=== PATIENT | male | born 1955 | race Caucasian/White ===

== ENCOUNTER 2023-07-18 09:11 | Outpatient (REF) | payer MEDICARE, OTHER, SELFPAY ==
[2023-07-18 15:19] LABS: TSH reflex Free T4 2.42 uIU/mL (0.32-4.0)
== END 2023-07-18 09:12 | disposition home or self-care (01) ==
LOC: HO.CHCLDS 09:11
PROVIDERS: Visit Provider Internal Medicine
DX: E03.8 Other specified hypothyroidism (principal)
CPT/HCPCS: 36415; 84443

== ENCOUNTER 2023-11-13 09:29 | Outpatient (REF) | payer MEDICARE, OTHER, SELFPAY ==
[2023-11-13 15:36] LABS: TSH reflex Free T4 3.22 uIU/mL (0.32-4.0)
== END 2023-11-13 09:30 | disposition home or self-care (01) ==
LOC: HO.CHCLDS 09:29
PROVIDERS: Visit Provider Internal Medicine
DX: E03.8 Other specified hypothyroidism (principal)
CPT/HCPCS: 36415; 84443

== ENCOUNTER 2024-05-31 14:39 | Outpatient (REF) | payer MEDICARE, OTHER, SELFPAY ==
[2024-05-31 17:59] LABS: MANUAL DIFF FLAG NO
[2024-05-31 18:03] LABS: Basophils Percent Auto 0.3 % (0-2); Eosinophils Absolute Auto 0.1 X10*3/uL (0.0-0.4); Eosinophils Percent Auto 1.1 % (0-4); Hematocrit 47.2 % (42.0-52.0); Imm Gran Abs Auto 0.02 X10*3/uL (0.00-0.03); Imm Gran Pct Auto 0.3 % (0.0-0.4); Lymphocytes Absolute Auto 1.5 X10*3/uL (1.2-4.9); Mean Corpuscular HGB Conc 33.9 g/dl (31.0-36.0); Mean Corpuscular Hemoglobin 31.1 pg (27.0-33.0); Mean Corpuscular Volume 91.8 fL (80.0-98.0); Mean Platelet Volume 9.7 fL (9.4-12.4); Monocytes Absolute Auto 0.6 X10*3/uL (0.1-1.2); Monocytes Percent Auto 9.6 % (2-11); Neutrophils Absolute Auto 3.9 x10*3/uL (2.0-8.3); Neutrophils Percent Auto 63.7 % (45-73); Platelet Count 256 X10*3/uL (160-400); Red Blood Count 5.14 X10*6/uL (4.60-5.80); Red Cell Distribution Width 12.1 % (11.0-16.0); White Blood Count 6.1 X10*3/uL (4.8-10.8)
[2024-05-31 18:23] LABS: Alanine Aminotransferase 19 U/L (0-40); Albumin Level 4.1 g/dL (3.5-5.0); Alkaline Phosphatase 88 U/L (39-117); Anion Gap 12 (12-20); Aspartate Amino Transferase 23 U/L (5-37); Bilirubin Total 0.8 mg/dL (0.0-1.0); Blood Urea Nitrogen 9 mg/dL (9-16); Calcium 9.8 mg/dL (8.4-10.2); Carbon Dioxide 28 mmol/L (22-29); Chloride 101 mmol/L (96-108); Cholesterol 145 mg/dL (<200); Estimated Glomerular Filt Rate > 60; Glucose Random 96 mg/dL (60-115); HDL Cholesterol 45 mg/dL (>40); LDL Cholesterol Calculated 85 mg/dL (<100); Potassium 4.4 mmol/L (3.3-5.1); Sodium 137 mmol/L (135-145); Total Protein 7.6 g/dL (6.5-8.0); Triglycerides 78 mg/dL (<150)
[2024-05-31 18:40] LABS: TSH reflex Free T4 2.03 uIU/mL (0.32-4.0)
[2024-05-31 18:49] LABS: Vitamin B12 819 pg/mL (200-900)
[2024-06-01 07:26] LABS: HBS Num1 3.25 mIU/mL (0-7.99); HBc Num1 0.18 S/CO (0.00-0.79); HBsAGNum1 0.29 S/CO (0.00-0.99); Hepatitis B Core Antibody Nonreactive (Nonreactive); Hepatitis B Surface Antigen Negative (Negative); ~Hepatitis B Surface Antibody NONREACTIVE (Nonreactive)
== END 2024-05-31 14:40 | disposition home or self-care (01) ==
LOC: HO.CHCLDS 14:39
PROVIDERS: Visit Provider Nurse Practitioner
DX: E03.8 Other specified hypothyroidism (principal); Z83.49 Family history of other endocrine, nutritional and metabolic diseases; Z13.9 Encounter for screening, unspecified
CPT/HCPCS: 36415; 80053; 80061; 82607; 84443; 85025; 86704; 86706; 87340

== ENCOUNTER 2025-07-07 11:47 | Outpatient (REF) | payer MEDICARE, OTHER, SELFPAY ==
--- OUTSIDE RECORDS SUMMARY | 2025-07-07 12:19 | XMS_ITS | Encounter Summary ---
Author Organization [employer] Address [address] [facility] 7t [place] [address] Care Team Providers Care Chute Puller Name Role Phone Henri Warner MD Primary Care Prov ider Encounter Details Date Type Department Care Team (Latest Contact Info) Description 06/06/2022 Abstract [facility] Dental, Provider, DDS Social History Tobacco Use Types Packs/Day Years Used Date Smoking Tobacco: Never Assessed Sex and Gender Information Value Date Recorded Sex Assigned at Male 09/30/2022 10:18 AM EDT Legal Sex Male 10:18 AM EDT Gender Identity Male 09/30/2022 10:18 AM EDT Sexual Orientation Straight 09/30/2022 10 :18 AM EDT documented as of this encounter Plan of Treatment Upcoming Encounters Date Type Department Care Team ( st Contact Info) Description 07/20/2025 2:30 PM EDT Office Visit [facility] ADULT [facility] [address] [place] [address] Berto Paulinoio [address] [place] [address] documented as of this encounter Visit Diagnoses Not on filedocumented in this encounter Care Teams Chute Puller Relationship Specialty Start Date End Date Henri Warner MD [address] [place] [address] PCP - General Internal Medicine 05/01/20 documented as of this encounter
[2025-07-07 14:52] LABS: PSA,Total (Free>4and<10) 0.94 ng/mL (0.00-4.00)
== END 2025-07-07 11:48 | disposition home or self-care (01) ==
LOC: HO.CHCLDS 11:47
PROVIDERS: Visit Provider Internal Medicine
DX: Z12.5 Encounter for screening for malignant neoplasm of prostate (principal)
CPT/HCPCS: 36415; 84153

== ENCOUNTER 2025-10-05 14:10 | Outpatient (REF) | payer MEDICARE, OTHER, SELFPAY ==
--- OUTSIDE RECORDS SUMMARY | 2025-09-29 22:59 | XMS_ITS | Continuity of Care Document ---
Author Organization [facility] Address [address] [place] [address]- Care Team Providers Care Curing Press Operator Name Role Phone Angely Sung MD, Henri Primary Care Phys ician Encounter [facility] [place] Date(s): 08/30/25 - 09/29/25 [facility] [address] [place] [phone] Encounter Type: Triage Allergies, Adverse Reactions, Alerts Substance Criticality Severity Reaction Reaction Severity Status penicillin swelling all over Active Immunizations Given and Recorded Vaccine Date Status Refusal Reason SARS-CoV-2 (COVID-19) Ad26 vaccine 03/11/21 Given Medications buPROPion 300 mg/24 hours (XL) oral tablet, extended release 1 tablet = 300 mg, By Mouth, Daily, 0 Refills, Maintenance, 08/18/25 1:02:00 PM EDT, Partial fill upon patient request if the prescription is for a schedule II opioid drug. Start Date: 08/18/25 Status: Ordered Medication Dispense Status: Completed Total Allowed Fills: 1 Fills Dispensed: 0 citalopram 20 mg oral tablet 2 tablet = 40 mg, By Mouth, Daily, 0 Refills, Maintenance, 09/14/10 8:24:49 AM EDT Start Date: 09/14/10 Status: Ordered Medication Dispense Status: Completed Total Allowed Fills: 1 Fills Dispensed: 0 omeprazole 20 mg oral delayed release tablet 1 tablet = 20 mg, By Mouth, Daily, # 90 tablet, 3 Refills, Maintenance, 06/16/25 1:50:00 PM EDT, CR Tablet, [facility] #[id number], Partial fill upon patient request if the prescription is for a schedule II opioid drug., 175, cm, 06/16/25 13:07:00 EDT, Height Start Date: 06/16/25 Status: Ordered Medication Dispense Status: Completed Quantity: 90.0 Unit: tablet Total Allowed Fills: 4 Fills Dispensed: 0 omeprazole 20 mg oral enteric coated capsule 1 capsule = 20 mg, By Mouth, Daily, # 90 capsule, 3 Refills, Maintenance, 05/10/24 11:39:00 AM EDT, EC Capsule, [facility] #[id number], 175, cm, 04/22/24 14:13:00 EDT, Height Start Date: 05/10/24 Stop Date: 05/05/25 Status: Ordered Medication Dispense Status: Completed Quantity: 90.0 Unit: capsule Total Allowed Fills: 4 Fills Dispensed: 0 [id number] with Electrolytes (Eqv-GoLYTELY) oral powder for reconstitution See Instructions, 1 glass every 15-30 minutes until finished, # 4,000 mL, 0 Refills, Maintenance, 08/02/25 4:05:00 PM EDT, [facility] #[id number], Partial fill upon patient request if the prescription is for a schedule II opioid drug., 1 glass every 15-30 minutes until finished, 175, cm, 06/16/2513:07:00 EDT, Height Start Date: 08/02/25 Status: Ordered Medication Dispense Status: Completed Quantity: 4000.0 Unit: mL Total Allowed Fills: 1 Fills Dispensed: 0 pravastatin 40 mg oral tablet 1 tablet = 40 mg, By Mouth, Daily at bedtime, 0 Refills, Maintenance, 09/14/10 8:26:01 AM EDT Start Date: 09/14/10 Status: Ordered Medication Dispense Status: Completed Total Allowed Fills: 1 Fills Dispensed: 0 Vitamin B12 1000 mcg oral tablet 1 tablet = 1,000 mcg, By Mouth, Daily, 0 Refills, Maintenance, 08/18/25 12:56:00 PM EDT, Partial fill upon patient request if the prescription is for a schedule II opioid drug. Start Date: 08/18/25 Status: Ordered Medication Dispense Status: Completed Total Allowed Fills: 1 Fills Dispensed: 0 Problem List Condition Confirmation Course Effective Dates Status Health St atus Informant Alcoholic cirrhosis Confirmed Active Depression Confirmed Active Social History Social History Type Response Smoking Status Never (less than 100 in lifetime) entered on: 04/22/24 Sex Sex Representation Male (finding) Patient Care team information Care Team Personnel Name: Henri Warner MD Position: S Outreach Member Role: PCP Address: [address] [place] [address] Telecom: Care Team Related Persons Name: RITESH FLOYD Name: RITESH FLOYD Name: BLANCA FLOYD Insurance Providers Guarantor name: [facility] Plan Information #: 1 Payer: [employer] Payer Identifier: NA Member Number: [id number] Group Number: NA Subscriber Identifier: NA Relationship to Subscriber: self Coverage Type: Managed Care (Private) Coverage Verification Date: NA Telecom: NA Address:
--- OUTSIDE RECORDS SUMMARY | 2025-10-03 13:15 | XMS_ITS | Encounter Summary ---
Author Organization [employer] Address [address] [facility] 7t [place] [address] Care Team Providers Care Space Operations Officer Name Role Phone Henri Warner MD Primary Care Prov ider Encounter Details Date Type Department Care Team (Latest Contact Info) Description 10/03/2025 1:15 PM EST Telemedicine [facility] MED & PEDS [address] [place], [place] [phone] Henri Warner MD [address] [place] [address] Mixed hyperglyceridemia Social History Tobacco Use Types Packs/Day Years Used Date Smoking Tobacco: Never Smokeless Tobacco: Never Alcohol Use Standard Drinks/Week Comments Not Currently 0 (1 standard drink = 0.6 oz pur e alcohol) Alcohol Answer Date Recorded How often do you have a drink containing alcohol ? 0 05/31/2024 Average Number of Drinks Not on file 024 How often do you have six or more drinks on one occasion? 0 05/31/2024 Depression Answer Date Recorded Patient Health Questionnaire-9 Score 0 05/31/2024 Patient Health Questionnaire-9 Score 0 05/31/2024 Last PHQ-9: Questionnaire Data Not on file 0 05/31/2024 Housing Stability Answer Date Recorded What is your housing situation today? I have arpit muro 06/07/[address] you li ve. Do you have problems with any of the following? None of the above 06/07/2025 Food Insecurity Answer Date Recorded Within the past 12 months, y ou worried that your food would run out before you got money to buy more: Never True 06/07/2025 Within the past 12 months,th e food you bought just didn't last and you didn't have enough money to get more: Never True 07/2025 Transportation Answer Date Recorded In the past 12 months, has l ack of transportation kept you from medical appts, meetings, work or from getting things needed for daily living? No 06/07/2025 Utilities Answer Date Recorded In the past 12 months, has t he electric, gas, oil or water company threatened to shut off services in your home? No 06/07/2025 Depression Answer Date Recorded Patient Health Questionnaire-2 Score 0 05/31/2024 Internet Access Answer Date Recorded Internet Access Q1 No 06/07/2025 Internet Access Q2 I do not want or need it 07/2025 Sex and Gender Information Value Date Recorded Sex Assigned at Male 09/30/2022 10:18 AM EDT Legal Sex Male 10:18 AM EDT Gender Identity Male 09/30/2022 10:18 AM EDT Sexual Orientation Straight 09/30/2022 10 :18 AM EDT documented as of this encounter Progress Notes * Henri Sung MD - 10/03/2025 1:15 PM EST Subjective Patient ID: Adam Goddard is a 70 y.o. male who presents for No chief complaint on file.. Hyperlipidemia This is a chronic problem. He has no history of chronic renal disease, diabetes, hypothyroidism, liver disease, obesity or nephrotic syndrome. Pertinent negatives include no chest pain, focal sensoryloss, focal weakness, leg pain, myalgias or shortness of breath. Review of Systems Respiratory: Negative for shortness of breath. Cardiovascular: Negative for chest pain. Musculoskeletal: Negative for myalgias. Neurological: Negative for focal weakness. Objective Physical Exam Neurological: General: No focal deficit present. Mental Status: He is oriented to person, place, and time. Psychiatric: Mood and Affect: Mood normal. Behavior: Behavior normal. Assessment/Plan Problem List Items Addressed This Visit None Visit Diagnoses Mixed hyperglyceridemia On pravastatin, new labs will be ordered for guidance of therapy, keep low cholesterol and exerciseas tolerated Relevant Medications pravastatin (Pravachol) 40 MG tablet Other Relevant Orders CBC auto differential Comprehensive Metabolic Panel Lipid Panel, Standard TSH W/Reflex to FT4 Hemoglobin A1c documented in this encounter Plan of Treatment Upcoming Encounters Date Type Department Care Team (Late st Contact Info) Description 10/06/2025 2:00 PM EST Office Visit [facility] ADULT DENTAL [address] [place] [address] Dileep Paulino [address] [place] [address] Scheduled Orders Name Type Priority Associated Diagnoses Orde r Schedule CBC auto differential Lab Routine Mixed hyperglyceridemia Expected: 10/03/2025 (Approximate), Expires: 10/03/2026 Comprehensive Metabolic Panel Lab Routine Mixed hyperglyceridemia Expected: 10/03/2025 (Approximate), Expires: 10/03/2026 Lipid Panel, Standard Lab Routine Mixed hyperglyceridemia Expected: 10/03/2025 (Approximate), Expires: 10/03/2026 TSH W/Reflex to FT4 Lab Routine Mixed hyperglyceridemia Expected: 10/03/2025 (Approximate), Expires: 10/03/2026 Hemoglobin A1c Lab Routine Mixed hyperglyceridemia Expected: 10/03/2025 (Approximate), Expires: 10/03/2026 documented as of this encounter Visit Diagnoses Diagnosis 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
--- OUTSIDE RECORDS SUMMARY | 2025-10-05 17:20 | XMS_ITS | Encounter Summary ---
Author Organization [employer] Address [address] [facility] 7t [place] [address] Care Team Providers Care Supervisor Scouring Pads Name Role Phone Henri Warner MD Primary Care Prov ider Encounter Details Date Type Department Care Team (Latest Contact Info) Description 10/03/2025 Travel Social History Tobacco Use Types Packs/Day Years [...] Description 10/06/2025 2:00 PM EST Office Visit [facility] ADULT DENTAL [address] [place] [address] Dileep Paulino [address] [place] [address] documented as of this encounter Visit Diagnoses Not on filedocumented in this encounter Additional Health Concerns Assessment Noted Time PHQ-9 Depression Total Score: 0 05/31/20 24 1:52 PM EDT documented as of this encounter Care Teams Supervisor Scouring Pads Relationship Specialty Start Date End Date Henri Warner MD [address] [place] [address] PCP - General Internal Medicine 05/01/20 documented as of this encounter
--- OUTSIDE RECORDS SUMMARY | 2025-10-05 17:20 | XMS_ITS | Encounter Summary ---
Author Organization [employer] Address [address] [facility] [address] [place] [address] Care Team Providers Care Grizzlyman Name Role Phone Henri Warner MD Primary Care Prov ider Reason for Visit * Reason Onset Date Comments no show 10/03/2025 Encounter Details Date Type Department Care Team ([facility] st Contact Info) Description 10/03/2025 Telephone [facility] MED & PEDS [address] [place], [place] [phone] Henri Warner MD [address] [place] [address] no show Social History Tobacco Use Types Packs/Day Years [...] AM EDT documented as of this encounter Miscellaneous Notes * Telephone Encounter - Nena Gasca [place] - 10/03/2025 11:45 AM EST Called pt for tele appt today with Dr. Au. Pt didn't answer, lvm to call office back. documented in this encounter Plan of Treatment Upcoming Encounters Date Type Department Care Team (Late st Contact Info) Description 10/06/2025 2:00 PM EST Office Visit [facility] ADULT DENTAL [address] [place] [address] Dileep Paulino [address] [place] [address] documented as of this encounter Visit Diagnoses Not on filedocumented in this encounter Additional Health Concerns Assessment Noted Time PHQ-9 Depression Total Score: 0 05/31/20 24 1:52 PM EDT documented as of this encounter Care Teams Grizzlyman Relationship Specialty Start Date End Date Henri Warner MD [address] [place] [address] PCP - General Internal Medicine 05/01/20 documented as of this encounter
--- OUTSIDE RECORDS SUMMARY | 2025-10-05 17:20 | XMS_ITS | Encounter Summary ---
Author Organization [employer] Address [address] [facility] 7 [place] [address] Care Team Providers Care Inverted Block Operator Name Role Phone Henri Warner MD Primary Care Prov ider Reason for Visit * Reason Onset Date Comments Med Refill 11/06/2023 Encounter Details Date Type Department Care Team (Late st Contact Info) Description 11/06/2023 Telephone [facility] MEDICINE [address] [place] [address] Henri Warner MD [address] [place] [phone] Med Refill Social History Tobacco Use Types Packs/Day Years Used Date Smoking Tobacco: Never Smokeless Tobacco: Never Alcohol Use Standard Drinks/Week Comments Not Currently 0 (1 standard drink = 0.6 oz pur e alcohol) Depression Answer Date Recorded Patient Health Questionnaire-9 Score 0 03/11/2023 Housing Stability Answer Date Recorded What is your housing situation today? I have arpitnesha muro 10/11/[address] you li ve. Do you have problems with any of the following? None of the above 10/11/2023 Food Insecurity Answer Date Recorded Within the past 12 months, y ou worried that your food would run out before you got money to buy more: Never True 10/11/2023 Within the past 12 months,th e food you bought just didn't last and you didn't have enough money to get more: Never True 10/2023 Transportation Answer Date Recorded In the past 12 months, has l ack of transportation kept you from medical appts, meetings, work or from getting things needed for daily living? No 10/11/2023 Utilities Answer Date Recorded In the past 12 months, has t he electric, gas, oil or water company threatened to shut off services in your home? No 10/11/2023 Depression Answer Date Recorded Patient Health Questionnaire-2 Score 0 03/11/2023 Sex and Gender Information Value Date Recorded Sex Assigned at Male 09/30/2022 10:18 AM EDT Legal Sex Male 10:18 AM EDT Gender Identity Male 09/30/2022 10:18 AM EDT Sexual Orientation Straight 09/30/2022 10 :18 AM EDT documented as of this encounter Miscellaneous Notes * Telephone Encounter - Latasha Hayes - 11/06/2023 3:30 PM EST Tc from pt requesting med refill on; pravastatin (Pravachol) 40 MG tablet documented in this encounter Plan of Treatment Upcoming Encounters Date Type Department Care Team (Late st Contact Info) Description 10/06/2025 2:00 PM EST Office Visit [facility] ADULT DENTAL [address] [place] [address] [place], Dileep [address] [place] [address] documented as of this encounter Visit Diagnoses Not on filedocumented in this encounter Additional Health Concerns Assessment Noted Time PHQ-9 Depression Total Score: 0 03/11/20 23 11:30 AM EDT documented as of this encounter Care Teams Inverted Block Operator Relationship Specialty Start Date End Date Henri Warner MD [address] [place] [address] PCP - General Internal Medicine 05/01/20 documented as of this encounter
--- OUTSIDE RECORDS SUMMARY | 2025-10-05 17:20 | XMS_ITS | Encounter Summary ---
Author Organization [employer] Address [address] [facility] 7t [place] [address] Care Team Providers Care Toddler Lead Teacher Name Role Phone Henri Warner MD Primary Care Prov ider Encounter Details Date Type Department Care Team (Latest Contact Info) Description 06/06/2022 Abstract [facility] CONVERSION[facility] Dental, Provider, DDS Social History Tobacco [...] Care Team ( st Contact Info) Description 10/06/2025 2:00 PM EST Office Visit [facility] ADULT DENTAL [address] [place] [address] JeffersonBerto zhangio [address] [place] [address] documented as of this encounter Visit Diagnoses Not on filedocumented in this encounter Care Teams Toddler Lead Teacher Relationship Specialty Start Date End Date Henri Warner MD [address] [place] [address] PCP - General Internal Medicine 05/01/20 documented as of this encounter
--- OUTSIDE RECORDS SUMMARY | 2025-10-05 17:20 | XMS_ITS | Encounter Summary ---
Author Organization [employer] Address [address] [facility] 7t [place] [address] Care Team Providers Care Polisher Brass Name Role Phone Henri Warner MD Primary Care Prov ider Reason for Visit * Reason Onset Date Comments Lab Orders 05/10/2024 Encounter Details Date Type Department Care Team (Late st Contact Info) Description 05/10/2024 Telephone [facility] MEDICINE [address] [place] [address] Henri Warner MD [address] [place], [place] [phone] Lab Orders Social History Tobacco Use Types Packs/Day Years Used Date Smoking Tobacco: Never Smokeless Tobacco: Never Alcohol Use Standard Drinks/Week Comments Not Currently 0 (1 standard drink = 0.6 oz pur e alcohol) Depression Answer Date Recorded Patient Health Questionnaire-9 Score 0 03/11/2023 Housing Stability Answer Date Recorded What is your housing situation today? I have arpit muro 10/11/[address] you [...] encounter Miscellaneous Notes * Telephone Encounter - Monik Ponce RN - 05/12/2024 9:06 AM EDT PCP off. Will send message to review upon his return. Pt looking for routine labs prior to next appt on 05/31/24. * Telephone Encounter - Latasha Hayes - 05/10/2024 9:37 AM EDT Tc from pt requesting lab orders before appt on 05/31 documented in this encounter Plan of Treatment Upcoming Encounters Date Type Department Care Team (Late st Contact Info) Description 10/06/2025 2:00 PM EST Office Visit [facility] ADULT DENTAL [address] [place] [address] Dileep Paulino [address] [place] [address] documented as of this encounter Visit Diagnoses Not on filedocumented in this encounter Additional Health Concerns Assessment Noted Time PHQ-9 Depression Total Score: 0 03/11/20 23 11:30 AM EDT documented as of this encounter Care Teams Polisher Brass Relationship Specialty Start Date End Date Henri Warner MD [address] [place] [address] PCP - General Internal Medicine 05/01/20 documented as of this encounter
--- OUTSIDE RECORDS SUMMARY | 2025-10-05 17:20 | XMS_ITS | Encounter Summary ---
Author Organization [email or web address] Address [address] [facility] 7t [place] [address] Care Team Providers Care Filling Machine Tender Name Role Phone Henri Warner MD Primary Care Prov ider Encounter Details Date Type Department Care Team (Late st Contact Info) Description 03/19/2024 Orders Only [facility] MEDICINE [address] [place] [address] ProviderKilo MD Social History Tobacco Use Types Packs/Day Years [...] 10/06/2025 2:00 PM EST Office Visit [facility] ADULT DENTAL [address] [place] [address] Dileep Paulino [address] [place] [address] documented as of this encounter Procedures Procedure Name Priority Date/Time Associated Diagnosis Comments HM COLONOSCOPY Routine 02/24/2015 10:31 AM EDT documented in this encounter Results * Hm Colonoscopy (02/24/2015 10:31 AM EDT) Historical Provider HEALTH MAINTENANCE Final Result documented in this encounter Visit Diagnoses Not on filedocumented in this encounter Additional Health Concerns Assessment Noted Time PHQ-9 Depression Total Score: 0 03/11/20 23 11:30 AM EDT documented as of this encounter Care Teams Filling Machine Tender Relationship Specialty Start Date End Date Henri Warner MD [address] [place] [address] PCP - General Internal Medicine 05/01/20 documented as of this encounter
--- OUTSIDE RECORDS SUMMARY | 2025-10-05 17:20 | XMS_ITS | Encounter Summary ---
Author Organization [email or web address] Address [address] [facility] 7 [place] [address] Care Team Providers Care Wet Process Operator Name Role Phone Henri Warner MD Primary Care Prov ider Encounter Details Date Type Department Care Team (Latest Contact Info) Description 11/10/2020 Abstract [facility] CONVERSION[facility] Dental, Provider, DDS Social History [...] Description 10/06/2025 2:00 PM EST Office Visit [facility] ADULT DENTAL [address] [place] [address] [place] Dileep [address] [place] [address] documented as of this encounter Visit Diagnoses Not on filedocumented in this encounter Care Teams Wet Process Operator Relationship Specialty Start Date End Date Henri Warner MD [address] [place] [address] PCP - General Internal Medicine 05/01/20 documented as of this encounter
--- OUTSIDE RECORDS SUMMARY | 2025-10-05 17:20 | XMS_ITS | Encounter Summary ---
Author Organization [employer] Address [address] [facility] 7t [place] [address] Care Team Providers Care Armature Connector Name Role Phone Henri Warner MD Primary Care Prov ider Reason for Visit * Reason Comments Med Refill Encounter Details Date Type Department Care Team ([facility] st Contact Info) Description 12/14/2024 Refill [facility] MEDICINE [address] [place] [address] Anjel Pathak MD [address] [place] [address] Mixed hyperglyceridemia Social History Tobacco Use Types [...] housing situation today? I have arpit muro 05/24/[address] you li ve. Do you have problems with any of the following? None of the above 05/24/2024 Food Insecurity Answer Date Recorded Within the past 12 months, y ou worried that your food would run out before you got money to buy more: Never True 05/24/2024 Within the past 12 months,th e food you bought just didn't last and you didn't have enough money to get more: Never True Transportation Answer Date Recorded In the past 12 months, has l ack of transportation kept you from medical appts, meetings, work or from getting things needed for daily living? No 05/24/2024 Utilities Answer Date Recorded In the past 12 months, has t he electric, gas, oil or water company threatened to shut off services in your home? No 05/24/2024 Depression Answer Date Recorded Patient Health Questionnaire-2 Score 0 05/31/2024 Internet Access Answer Date Recorded Internet Access Q1 Yes 08/02/2024 Internet Access Q2 Not on file 08/02/2024 Sex and Gender Information Value Date Recorded Sex Assigned at Male 09/30/2022 10:18 AM EDT Legal Sex Male 10:18 AM EDT Gender Identity Male 09/30/2022 10:18 AM EDT Sexual Orientation Straight 09/30/2022 10 :18 AM EDT documented as of this encounter Plan of Treatment Upcoming Encounters Date Type Department Care Team (Late st Contact Info) Description 10/06/2025 2:00 PM EST Office Visit [facility] ADULT DENTAL [address] [place] [address] Dileep Paulino [address] [place] [address] documented as of this encounter Visit Diagnoses Diagnosis 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
--- OUTSIDE RECORDS SUMMARY | 2025-10-05 17:20 | XMS_ITS | Clinical Summary ---
Author Organization [employer] Address [address] [place] [address] Care Team Providers Care Learning Design Specialist Name Role Phone Henri Warner MD Primary Care Prov ider Allergies Active Allergy Reactions Criticality Noted Date Comments Penicillins Swelling 01/17/2015 Medications citalopram (CeleXA) 40 MG tablet Take 30 mg by mouth Once per day. 023 Active cyanocobalamin (Vitamin B-12) 500 MCG tablet Active buPROPion XL (Wellbutrin XL) 300 MG 24 hr tablet Take 300 mg by mouth in the morning. 023 Active omeprazole (PriLOSEC) [address] capsule Take 20 mg by mouth. 024 Active cyanocobalamin (Vitamin B-12) 1000 MCG tablet 0 Refills, Maintenance 010 Active pravastatin (Pravachol) 40 MG tabletIndications:M ixed hyperglyceridemia Take 1 tablet (40 mg) by mouth at bedtime. 90 tablet 3 025 2025 Active pravastatin (Pravachol) 40 MG tabletIndications:M ixed hyperglyceridemia Take 1 tablet (40 mg) by mouth at bedtime. 90 tablet 3 025 2024 Discontinued(R eorder (will not trigger notification to Pharmacy)) Active Problems Problem Noted Date Diagnosed Date Chronic alcoholism in remission (CMS/HCC) 2024 Prostate cancer screening 06/14/2025 Assessment & Plan (06/14/2025 1:51 PM EDT): Will order PSA for further evaluation Screening for colon cancer 06/14/2025 Assessment & Plan (06/14/2025 1:51 PM EDT): Followed by GI, refers has scheduled procedure for august Annual physical exam 05/31/2024 Assessment & Plan (05/31/2024 2:51 PM EDT): -Colonoscopy: follows with GI, next test 2024 -PSA: no clinical indication for screening -Hepatitis C Screen: completed 03/2023 with negative results -HIV Screen: completed 03/2023 with negative results -Vision Exam: up to date as of early 2023. Due next year -Dental Care: will contact for dental office for appointment -Immunizations: hepatitis B vax pending no immunity; will get PCV, RSV, Flu, COVID in the fall -30 min minimum daily exercise encouraged -follow-up 1 year or sooner as needed Alcoholic cirrhosis (CMS/HCC) 03/11/2023 Subclinical hypothyroidism 03/11/2023 Assessment & Plan (05/31/2024 2:50 PM EDT): -asymptomatic at this time -lab ordered; will discuss tx if neecessary pending results Assessment & Plan (11/17/2023 9:00 AM EST): Patient has remained chemically euthyroid, will follow up in 6 months, Assessment & Plan (07/24/2023 12:11 PM EDT): Resolved, 2 consecutive normal tsh levels, told to watch for new symptoms, follow up in 6 months Assessment & Plan (05/29/2023 2:29 PM EDT): Discussed with patient blood work findings, will follow up in 6 months Assessment & Plan (03/11/2023 12:04 PM EDT): Will order new labs for guidance of therapy, he is currently clinically euthyroid Hyperlipidemia 08/18/2018 Assessment & Plan (06/14/2025 1:50 PM EDT): On statin therapy, cholesterol/ldl stable, no changes will be made, continue low cholesterol diet, follow up in 4 months Assessment & Plan (11/17/2023 9:01 AM EST): On pravastatin, last blood work results they were stable, will follow up in 6 months Assessment & Plan (05/29/2023 2:29 PM EDT): Controlled, continue pravastatin, follow up in 4 months to repeat blood work Assessment & Plan (03/11/2023 12:04 PM EDT): Will place orders for new labs for guidacne of therapy, on pravastatin 40mg, will call with results Gastroesophageal reflux disease without esophagi tis 08/18/2018 Assessment & Plan (06/14/2025 1:50 PM EDT): On omeprazole, continue lifestyle modifications, Depressive disorder 08/18/2018 Encounters Date Type Department Care Team Description 10/03/2025 1:15 PM EST Telemedicine [facility] [address] [place] [address] Henri Warner MD Mixed hyperglyceridemia 10/03/2025 Telephone [facility] [address] [place] [address] Henri Warner MD no show 10/03/2025 Travel 09/08/2025 3:00 PM EDT Office Visit [facility] [address] [place] [address] Jefferson, Dileep 08/24/2025 2:30 PM EDT Office Visit [facility] [address] [place] [address] Jefferson, Dileep 08/03/2025 2:30 PM EDT Office Visit [facility] [address] [place] [address] Jefferson, Dileep 07/20/2025 2:30 PM EDT Office Visit [facility] [address] [place] [address] Jefferson, Dileep from Last 3 Months Family History Medical History Relation Name Comments Alcohol abuse Father Breast cancer Mother Relation Name Status Comments Father Mother Alive Social History Tobacco Use Types Packs/Day Years Used Date Smoking Tobacco: Never Smokeless Tobacco: Never Tobacco Cessation:Counseling Given: Not Answered Alcohol Use Standard Drinks/Week Comments Not Currently [...] Orientation Straight 09/30/2022 10 :18 AM EDT Last Filed Vital Signs Vital Sign Reading Time Taken Comments Blood Pressure 110/70 08/03/2025 2:41 PM EDT Pulse 66 07/20/2025 2:40 PM EDT Temperature 36.6 C (97.8 F) 06/14/2025 1:36 PM EDT Respiratory Rate 16 06/14/2025 1:36 PM EDT Oxygen Saturation - - Inhaled Oxygen Concentration - - Weight 81.6 kg (180 lb) 06/14/2025 1:36 PM EDT Height 175.3 cm (5' 9 ) 06/14/2025 1:36 PM EDT Body Mass Index 26.58 06/14/2025 1:36 PM EDT Plan of Treatment Upcoming Encounters Date Type Department Care Team (Late st Contact Info) Description 10/06/2025 2:00 PM EST Office Visit [facility] [address] [place], [place] [phone] Dileep Paulino [address] [place] [address] Health Maintenance Due Date Last Done Comments CT Colonography 1955 FIT DNA/Cologuard 1955 FIT 1955 FOBT 1955 Sigmoidoscopy 1955 Alcohol/Substance Use Screening 1967 Hepatitis A Vaccines (1 of 2 - Risk 2-dose series) 1974 Hepatitis B Vaccines (1 of 3 - Risk 3-dose series) 2015 Dental X-Ray: Bitewings 03/17/2020 03/16/20 19, 03/06/2018, 03/25/2017, Additional history exists Dental Oral Exam 12/13/2022 06/11/2022, , 11/18/2019, Additional history exists Colonoscopy 02/24/2025 02/24/2015 Colorectal Cancer Screening 02/24/2025 Depression Screening 05/31/2025 05/31/2024, 05/31/20 24 DTaP/Tdap/Td Vaccines (2 - Td or Tdap) 07/07/2025 07/07/2015 Dental Prophylaxis 11/20/2025 05/20/2025, 0 06/06/2022, 11/10/2020, Additional history exists SDOH Screening 06/07/2026 06/07/2025 Tobacco Screening 09/08/2026 09/08/2025 Dental X-Ray: Full Mouth 05/21/2028 05/20/2025, 08/02 Lipid Panel 05/31/2029 05/31/2024, 03/02, 03/19/2022, Additional history exists Zoster Vaccines Completed 11/13/2018, 08/31, 01/16/2015 Hepatitis C Screening Completed 03/20/2023, 022 RSV Patients and Patients Aged 60 years or older Completed 09/09/2023 COVID-19 Vaccine Completed 09/02/2025, , 09/28/2024, Additional history exists Influenza Vaccine Completed 09/02/2025, , 09/17/2022, Additional history exists Pneumococcal Vaccine: 50+ Years Completed 09/30/2025, 12/30/2014 HIB Vaccines Aged Out No longer eligi ble based on patient's age to complete this topic HPV Vaccines Aged Out No longer eligi ble based on patient's age to complete this topic IPV Vaccines Aged Out No longer eligi ble based on patient's age to complete this topic Meningococcal B Vaccine Aged Out No l onger eligible based on patient's age to complete this topic Meningococcal Vaccine Aged Out No sandi todd eligible based on patient's age to complete this topic RSV under 20 months Aged Out No longe r eligible based on patient's age to complete this topic Rotavirus Vaccines Aged Out No longer eligible based on patient's age to complete this topic Procedures Procedure Name Priority Date/Time Associated Diagnosis Comments DENTURE IMPRESSION Routine 09/08/2025 3: 00 PM EDT DENTURE IMPRESSION Routine 08/24/2025 2: 30 PM EDT 5 EXTRACTION, ERUPTED TOOTH OR EXPOSED ROOT (ELEVATION/FORCEPS REMOVAL) Routine 08/03/2025 2:30 PM EDT 12 EXTRACTION, ERUPTED TOOTH OR EXPOSED ROOT (ELEVATION/FORCEPS REMOVAL) Routine 08/03/2025 2:30 PM EDT 2 EXTRACTION, ERUPTED TOOTH OR EXPOSED ROOT (ELEVATION/FORCEPS REMOVAL) Routine 07/20/2025 2:30 PM EDT PSA, TOTAL WITH REFLEX TO PSA, FREE Routine 07/07/2025 11:51 AM EDT Prostate cancer screening Full PROPHYLAXIS - ADULT Routine 05/20/2025 1:00 PM EDT PANORAMIC RADIOGRAPHIC IMAGE Routine 05/20/2025 1:00 PM EDT LIPID PANEL, STANDARD Routine 05/31/2024 2:46 PM EDT Encounter for health-related screening HEPATITIS C AB W/REFL TO HCV RNA, QN, PCR Routine 03/20/2023 9:02 AM EDT Mixed hyperglyceridemia Subclinical hypothyroidism PERIODIC ORAL EVALUATION - ESTABLISHED PATIENT Routine 06/11/2022 12:00 AM EDT BITEWINGS - 4 RADIOGRAPHIC IMAGES Routine 03/16/2019 12:00 AM EDT HM COLONOSCOPY Routine 02/24/2015 10:31 AM EDT from Last 3 Months or Most Recently Relevant to Health Maintenance Results * PSA, Total With Reflex to PSA, Free (07/07/2025 11:51 AM EDT) PSA,Total (Free>4and<10) 0.94 0.00 - 4.00 ng/mL [facility] Comment:A Free PSA was not p erformed: The percentage of Free PSA can be used to enhance the differentiation of prostate cancer from benign prostatic disease in subjects whose PSA levels are between 4.0 and 10.0 ng/mL. For subjects whose PSA levels are below 4.0 or above 10.0 ng/mL, the risk of prostate cancer is determined on the basis of the PSA alone. Therefore the % Free PSA is recommended only for those subjects whose PSA levels are between 4.0 and 10.0 ng/mL.PSA methodology: Dumont Alinity i ChemiluminescentMicroparticle Immunoassay (CMIA) 07/07/2025 11:5 1 AM EDT 07/07/2025 2:08 PM EDT us Henri Sung MD LAB BLOOD ORDERABL ES Final Result [facility] [address] [place] [phone] * Lipid Panel, Standard (05/31/2024 2:46 PM EDT) Triglycerides 78 <150 mg/dL [facility] Comment:Desirable Triglyceri de: less than 150 mg/dLBorderline High Triglyceride 150-199 mg/dLHigh Triglyceride: 200-499 mg/dLVery High Triglyceride: greater than or equal to 5OO mg/dL Cholesterol 145 <200 mg/dL [facility] Comment:Desirable Cholestero l: less than 200 mg/dLBorderline High Cholesterol: 200-239 mg/dLHigh Cholesterol: greater than 239 mg/dL LDL Cholesterol Calculated 85 <100 mg/dL [facility] Comment:Desirable LDL: less than 100 mg/dLNear Optimal/Above Optimal LDL: 110- 129 mg/dLBorderline High LDL: 130-159 mg/dLHigh LDL: 160-189 mg/dLVery High LDL: greater than or equal to 190 mg/dL HDL Cholesterol 45 >40 mg/dL [facility] Comment:Desirable HDL: great er than 40 mg/dL Note: This HDL assay may give artificially low results in patients with liver disease. Blood Venous blood specimen / Unknown 05/31/2024 2:46 PM EDT 05/31/2024 5:56 PM EDT Lindsay Laws NP LAB BLOOD ORDERABLES Final Resu lt [facility] [address] [place] [phone] * Hepatitis C Antibody with Reflex to HCV, RNA, Quantitative, Real-Time PCR (03/20/2023 9:02 AM EDT) Hepatitis C Antibody NON-REACT AUGUST NON-REACT AUGUST Ajalinet Index 0.13 <1.00 [facility] Comment: HCV antibody was non-reactive. There is no laboratory evidence of HCV infection. In most cases, no further action is required. However, if recent HCV exposure is suspected, a test for HCV RNA (test code 14165) is suggested. For additional information please refer to http://education.[employer]/faq/JVM78g3 (This link is being provided for informational/ educational purposes only.) Blood Venous blood specimen / Unknown 03/20/2023 9:02 AM EDT 03/20/2023 9:02 AM EDT Narrative [facility] - 03/24/2023 10:15 AM EDT FASTING:YES FASTING: YES Henri Sung MD LAB BLOOD ORDERABL ES Final Result [facility] [address], [place] [address] [facility]icous [facility] [address] [place] [address] * Hm Colonoscopy (02/24/2015 10:31 AM EDT) us Historical Provider HEALTH MAINTENANCE Final Result from Last 3 Months or Most Recently Relevant to Health Maintenance Insurance [facility] PPO [facility] FULL DENTAL - HSN PARTIAL (MEDICAID) DENTAL - [employer] DENTAL Care Teams Learning Design Specialist Relationship Specialty Start Date End Date Henri Warner MD [address] [place] [phone] PCP - General Internal Medicine 05/01/20
--- OUTSIDE RECORDS SUMMARY | 2025-10-05 17:20 | XMS_ITS | Encounter Summary ---
Author Organization [employer] Address [address] [place] [address] Care Team Providers Care Yarn Tester Name Role Phone Henri Warner MD Primary Care Prov ider Encounter Details Date Type Department Care Team (Latest Contact Info) Description 11/18/2019 Abstract [facility] CONVERSIONS Dental, Provider, DDS Social History Tobacco [...] 10/06/2025 2:00 PM EST Office Visit [facility] [address] [place] [address] Jefferson Dileep [address] [place] [address] documented as of this encounter Visit Diagnoses Not on filedocumented in this encounter Care Teams Yarn Tester Relationship Specialty Start Date End Date Henri Warner MD [address] [place] [address] PCP - General Internal Medicine 05/01/20 documented as of this encounter
[2025-10-05 18:12] LABS: MANUAL DIFF FLAG NO
[2025-10-05 18:42] LABS: Hematocrit 47.2 % (42.0-52.0); Hemoglobin 16.0 g/dl (14.0-18.0); Imm Gran Abs Auto 0.03 X10*3/uL (0.00-0.03); Imm Gran Pct Auto 0.3 % (0.0-0.4); Lymphocytes Absolute Auto 2.0 X10*3/uL (1.2-4.9); Mean Corpuscular HGB Conc 33.9 g/dl (31.0-36.0); Mean Corpuscular Hemoglobin 30.0 pg (27.0-33.0); Mean Corpuscular Volume 88.4 fL (80.0-98.0); NRBC Abs Auto 0.000 X10*3/uL (0.0-0.012); NRBC Pct Auto 0.0 /100WBC (0.0-0.2); Platelet Count 254 X10*3/uL (160-400); Red Blood Count 5.34 X10*6/uL (4.60-5.80); White Blood Count 9.5 X10*3/uL (4.8-10.8)
[2025-10-05 18:56] LABS: Alanine Aminotransferase 18 U/L (0-40); Albumin Level 4.2 g/dL (3.5-5.0); Alkaline Phosphatase 91 U/L (39-117); Anion Gap 13 (12-20); Aspartate Amino Transferase 32 U/L (5-37); Blood Urea Nitrogen 10 mg/dL (9-16); Calcium 9.4 mg/dL (8.4-10.2); Carbon Dioxide 26 mmol/L (22-29); Chloride 104 mmol/L (96-108); Cholesterol 145 mg/dL (<200); Estimated Glomerular Filt Rate > 60; HDL Cholesterol 44 mg/dL (>40); Potassium 3.9 mmol/L (3.3-5.1); Sodium 139 mmol/L (135-145); Total Protein 7.7 g/dL (6.5-8.0); Triglycerides 123 mg/dL (<150)
== END 2025-10-05 14:11 | disposition home or self-care (01) ==
LOC: HO.CHCLDS 14:10
PROVIDERS: Visit Provider Internal Medicine
DX: E78.3 Hyperchylomicronemia (principal); Z13.1 Encounter for screening for diabetes mellitus; Z13.29 Encounter for screening for other suspected endocrine disorder
CPT/HCPCS: 36415; 80053; 80061; 83036; 84443; 85025